=== PATIENT | male | born 1960 | race Caucasian/White ===

== ENCOUNTER 2020-05-13 14:23 | Inpatient (IN) | payer BC, OTHER ==
[~2020-05-13] VITALS: Ht 182.9 cm; Wt 145.2 kg
[~2020-05-13 14:23] MED LIST: ECOTRIN81 MG PO; K-DUR TAB 10 M10 MEQ PO; K-DUR TAB 20 M20 MEQ PO; LAMISIL TAB 25250 MG PO; MONTELUKAST SOD10 MG PO; NORVASC 5 MG TAB5 MG PO; OMNICEF 300 MG300 MG PO; PROTONIX40 MG PO; TOPROL XL100 MG PO; ULTRAM50 MG PO
[2020-05-13 15:49] LABS: HEMOGLOBIN 15.4 gm/dl (14.0-17.5); RED BLOOD COUNT 4.9 M/UL (4.20-5.50); WHITE BLOOD COUNT 11.5 K/UL (4.5-11.0)
[2020-05-13] MEDS ORDERED: FOLIC ACID 1 MG1 MG PO (16:09)
[2020-05-13] MEDS ORDERED: ACETAMINOPHEN-1 EAC1 PO (16:10)
[2020-05-13] MEDS ORDERED: VOLTAREN100 GM TOP (16:11)
[2020-05-13] MEDS ORDERED: METHOTREXATE T2.5 MG PO (16:12)
[2020-05-13] MEDS ORDERED: DAILY VALUE1 EACH PO (16:12)
[2020-05-13] MEDS ORDERED: HYGROTON TAB 2525 MG PO (20:37)
[2020-05-14 05:07] LABS: HEMOGLOBIN 14.7 gm/dl (14.0-17.5); RED BLOOD COUNT 4.72 M/UL (4.20-5.50); WHITE BLOOD COUNT 11.4 K/UL (4.5-11.0)
[2020-05-15 03:29] LABS: HEMOGLOBIN 14.5 gm/dl (14.0-17.5); RED BLOOD COUNT 4.62 M/UL (4.20-5.50); WHITE BLOOD COUNT 10.3 K/UL (4.5-11.0)
[2020-05-15 03:57] LABS: BUN/CREATININE RATIO 37 (0-10)
[2020-05-16 04:43] LABS: HEMOGLOBIN 14.8 gm/dl (14.0-17.5); RED BLOOD COUNT 4.82 M/UL (4.20-5.50); WHITE BLOOD COUNT 12.3 K/UL (4.5-11.0)
[2020-05-16 05:55] LABS: BUN/CREATININE RATIO 39 (0-10)
[2020-05-16 06:10] LABS: ORGANISM ID Not indicated. (.); SPECIMEN SOURCE Urine (.); STREPTOCOCCUS PNEUMONIAE AG Negative (Negative)
[2020-05-17 05:55] LABS: HEMOGLOBIN 15.3 gm/dl (14.0-17.5); RED BLOOD COUNT 4.96 M/UL (4.20-5.50)
[2020-05-17 06:21] LABS: BUN/CREATININE RATIO 45 (0-10)
[2020-05-17 20:18] LABS: BUN/CREATININE RATIO 46 (0-10)
[2020-05-18 05:33] LABS: HEMOGLOBIN 14.8 gm/dl (14.0-17.5); RED BLOOD COUNT 4.98 M/UL (4.20-5.50); WHITE BLOOD COUNT 11.9 K/UL (4.5-11.0)
[2020-05-19 05:32] LABS: HEMOGLOBIN 15.1 gm/dl (14.0-17.5); RED BLOOD COUNT 4.86 M/UL (4.20-5.50); WHITE BLOOD COUNT 11.3 K/UL (4.5-11.0)
[2020-05-19 05:54] LABS: BUN/CREATININE RATIO 55 (0-10)
[2020-05-20 05:58] LABS: HEMOGLOBIN 14.5 gm/dl (14.0-17.5); RED BLOOD COUNT 4.76 M/UL (4.20-5.50); WHITE BLOOD COUNT 14.2 K/UL (4.5-11.0)
[2020-05-20 06:51] LABS: BUN/CREATININE RATIO 44 (0-10)
[2020-05-21 04:41] LABS: HEMOGLOBIN 14.5 gm/dl (14.0-17.5); RED BLOOD COUNT 4.69 M/UL (4.20-5.50)
[2020-05-21 05:30] LABS: BUN/CREATININE RATIO 42 (0-10)
[2020-05-22 03:17] LABS: RED BLOOD COUNT 4.54 M/UL (4.20-5.50); WHITE BLOOD COUNT 15.7 K/UL (4.5-11.0)
[2020-05-22 04:11] LABS: BUN/CREATININE RATIO 57 (0-10)
[2020-05-22 17:53] LABS: HEMOGLOBIN 11.2 gm/dl (14.0-17.5)
[2020-05-22 22:34] LABS: HEMOGLOBIN 9.9 gm/dl (14.0-17.5)
[2020-05-22 22:47] LABS: WHITE BLOOD COUNT 30.3 K/UL (4.5-11.0)
[2020-05-22 22:48] LABS: RED BLOOD COUNT 3.12 M/UL (4.20-5.50)
[2020-05-22 22:48] LABS: BUN/CREATININE RATIO 100 (0-10)
--- NOTE | 2020-05-22 23:49 | NUR ---
PT HAD ORDERS TO GO TO PCU UPON MY ARRIVAL TO THE FLOOR. HOWEVER, THERE WERE NO PCU BEDS AVAILABLE AT THE TIME. APPROX. 1900: TRIED TO CALL HOUSE TO GET AN UPDATE ON PT'S PCU BED. NO ANSWER. APPROX. 1929: TRIED TO CALL HOUSE TO GET AN UPDATE ON PT'S PCU BED. NO ANSWER. APPROX. 1999: MAKENZIE العراقي RN CALLED ME AND TOLD ME THAT THAT PCU WAS IN THE PROCESS OF TRANSFERRING A PATIENT TO ICU, AND THEN CLEANING THE ROOM AND THEN I WOULD BE ABLE TO CALL REPORT. APPROX. 2139: CALLED HOUSE BACK TO GET AN UPDATE ON PCU BED. [employer] TOLD ME THAT SHE WASN'T SURE. SHE WOULD CALL ICU AND LET ME KNOW. APPROX. 2148: CALLED B/C PT HAD A BP OF 86/71. SEE PROVIDER NOTIFCATIONS FOR DETAILS AND ORDERS. APPROX. 2149: CALLED HOUSE BACK TO NOTIFY HER OF PT'S BP AND TO SEE IF BED WAS AVAILABLE YET. APPROX. 2158: CALLED REPORT TO PCU. PT WAS BEING TRANSFERRED TO ROOM 6113. APPROX. 2219: I ALONG WITH PCT CALIXTO TRANSFERRED THE PT TO PCU. UPON ARRIVING TO PCU WITH PT, RN TOLD ME THAT PT WAS GOING TO ROOM 6116, INSTEAD OF 6113. PT WAS STABLE. NO SIGNS OF DISTRESS NOTED. PT'S 1L BOLUS AND PROTONIX DRIP @ 12 ML/HR WERE STILL INFUSING UPON TRANSFER.
[2020-05-23 03:47] LABS: BUN/CREATININE RATIO 97 (0-10)
[2020-05-23 05:47] LABS: HEMOGLOBIN 8.9 gm/dl (14.0-17.5)
[2020-05-23 07:31] LABS: RED BLOOD COUNT 2.9 M/UL (4.20-5.50)
[2020-05-23 08:49] LABS: WHITE BLOOD COUNT 33.3 K/UL (4.5-11.0)
[2020-05-23 14:56] LABS: HEMOGLOBIN 10.5 gm/dl (14.0-17.5)
[2020-05-23 23:21] LABS: HEMOGLOBIN 10.5 gm/dl (14.0-17.5)
[2020-05-24 04:59] LABS: HEMOGLOBIN 10.4 gm/dl (14.0-17.5)
[2020-05-24 10:58] LABS: HEMOGLOBIN 9.1 gm/dl (14.0-17.5)
[2020-05-25 04:51] LABS: HEMOGLOBIN 8.5 gm/dl (14.0-17.5); RED BLOOD COUNT 2.66 M/UL (4.20-5.50)
[2020-05-25 04:57] LABS: WHITE BLOOD COUNT 60.4 K/UL (4.5-11.0)
[2020-05-26 05:27] LABS: RED BLOOD COUNT 2.18 M/UL (4.20-5.50); WHITE BLOOD COUNT 26.8 K/UL (4.5-11.0)
[2020-05-26 05:28] LABS: HEMOGLOBIN 6.8 gm/dl (14.0-17.5)
--- NOTE | 2020-05-26 14:10 | NUR ---
DUAL LUMEN PICC LINE PLACED IN THE RIGHT BASILIC VEIN, CUT TO 44 CM.
[2020-05-26 17:18] LABS: HEMOGLOBIN 11.7 gm/dl (14.0-17.5)
[2020-05-27 07:02] LABS: RED BLOOD COUNT 3.19 M/UL (4.20-5.50); WHITE BLOOD COUNT 20.4 K/UL (4.5-11.0)
[2020-05-27 07:03] LABS: HEMOGLOBIN 9.6 gm/dl (14.0-17.5)
[2020-05-27 07:11] LABS: BUN/CREATININE RATIO 66 (0-10)
[2020-05-27 18:07] LABS: HEMOGLOBIN 9.3 gm/dl (14.0-17.5)
[2020-05-28 05:02] LABS: HEMOGLOBIN 9.4 gm/dl (14.0-17.5); RED BLOOD COUNT 3.21 M/UL (4.20-5.50); WHITE BLOOD COUNT 22.4 K/UL (4.5-11.0)
[2020-05-28 05:23] LABS: BUN/CREATININE RATIO 56 (0-10)
[2020-05-29 05:41] LABS: HEMOGLOBIN 8.9 gm/dl (14.0-17.5); WHITE BLOOD COUNT 20.5 K/UL (4.5-11.0)
[2020-05-29 06:01] LABS: BUN/CREATININE RATIO 37 (0-10)
--- NOTE | 2020-05-29 15:36 | NUR ---
TOLD ABOUT THE PATIENTS RIGHT ARM. WHEN I WALKED IN THE ARM WAS SWOLLEN AND OOZING. THE PT WAS NOT ABLE TO MOVE HIS RIGHT HAND AND COMPLAINED ABOUT PAIN.
[2020-05-30 03:43] LABS: HEMOGLOBIN 9.8 gm/dl (14.0-17.5); RED BLOOD COUNT 3.25 M/UL (4.20-5.50); WHITE BLOOD COUNT 19.2 K/UL (4.5-11.0)
[2020-05-30 04:00] LABS: BUN/CREATININE RATIO 35 (0-10)
[2020-05-31 03:23] LABS: HEMOGLOBIN 8.5 gm/dl (14.0-17.5); WHITE BLOOD COUNT 15.6 K/UL (4.5-11.0)
[2020-05-31 03:24] LABS: RED BLOOD COUNT 2.82 M/UL (4.20-5.50)
[2020-05-31 03:53] LABS: BUN/CREATININE RATIO 29 (0-10)
--- NOTE | 2020-05-31 12:52 | NUR ---
PT GOT UP AND SAT ON THE SIDE OF THE BED. BOTH ME AND PT SAT HIM UP. PT COMPLAINED ABOUT LEFT HAND, ALONG WITH THE LEFT LEG HURTING HIM TO MOVE. HE DID NOT TOLERATE IT WELL HIS RIGHT SIDE. HE HAD NO COMPLAINTS OUT OF THE RIGHT SIDE. WHICH WAS CONCERNING. THE DOCTOR IS AWARE AND WAS NOTIFIED THAT THE PT DID NOT COMPLAIN OF HIS RIGHT SIDE. PT SAT UP WELL ON THE BED AND USED HIS ARM TO SCOTCH HIM SELF UP.
[2020-06-01 03:46] LABS: HEMOGLOBIN 7.8 gm/dl (14.0-17.5); RED BLOOD COUNT 2.57 M/UL (4.20-5.50); WHITE BLOOD COUNT 12.6 K/UL (4.5-11.0)
[2020-06-01 04:25] LABS: BUN/CREATININE RATIO 26 (0-10)
[2020-06-01 13:31] LABS: HEMOGLOBIN 7.6 gm/dl (14.0-17.5); RED BLOOD COUNT 2.49 M/UL (4.20-5.50); WHITE BLOOD COUNT 11.1 K/UL (4.5-11.0)
[2020-06-01 13:59] LABS: BUN/CREATININE RATIO 25 (0-10)
[2020-06-02 05:33] LABS: HEMOGLOBIN 8.1 gm/dl (14.0-17.5); RED BLOOD COUNT 2.64 M/UL (4.20-5.50); WHITE BLOOD COUNT 11.9 K/UL (4.5-11.0)
[2020-06-02 05:54] LABS: BUN/CREATININE RATIO 23 (0-10)
[2020-06-03 10:43] LABS: HEMOGLOBIN 7.8 gm/dl (14.0-17.5); RED BLOOD COUNT 2.57 M/UL (4.20-5.50); WHITE BLOOD COUNT 11.3 K/UL (4.5-11.0)
[2020-06-03 11:25] LABS: BUN/CREATININE RATIO 18 (0-10)
[2020-06-03 16:28] LABS: BUN/CREATININE RATIO 18 (0-10)
[2020-06-05 06:17] LABS: HEMOGLOBIN 7.8 gm/dl (14.0-17.5); RED BLOOD COUNT 2.55 M/UL (4.20-5.50); WHITE BLOOD COUNT 10.3 K/UL (4.5-11.0)
[2020-06-05 06:31] LABS: BUN/CREATININE RATIO 18 (0-10)
[2020-06-06 05:19] LABS: HEMOGLOBIN 8.2 gm/dl (14.0-17.5); RED BLOOD COUNT 2.75 M/UL (4.20-5.50); WHITE BLOOD COUNT 9.6 K/UL (4.5-11.0)
[2020-06-06 05:50] LABS: BUN/CREATININE RATIO 17 (0-10)
[2020-06-07 04:13] LABS: HEMOGLOBIN 8.6 gm/dl (14.0-17.5); RED BLOOD COUNT 2.83 M/UL (4.20-5.50); WHITE BLOOD COUNT 10.5 K/UL (4.5-11.0)
[2020-06-07 04:50] LABS: BUN/CREATININE RATIO 17 (0-10)
[2020-06-10 04:42] LABS: HEMOGLOBIN 8.4 gm/dl (14.0-17.5); RED BLOOD COUNT 2.84 M/UL (4.20-5.50)
[2020-06-11 06:28] LABS: HEMOGLOBIN 8.5 gm/dl (14.0-17.5); RED BLOOD COUNT 2.85 M/UL (4.20-5.50); WHITE BLOOD COUNT 9.2 K/UL (4.5-11.0)
[2020-06-11 07:29] LABS: BUN/CREATININE RATIO 14 (0-10)
[2020-06-12 03:14] LABS: HEMOGLOBIN 8.5 gm/dl (14.0-17.5); RED BLOOD COUNT 2.86 M/UL (4.20-5.50); WHITE BLOOD COUNT 9.4 K/UL (4.5-11.0)
[2020-06-12 03:30] LABS: BUN/CREATININE RATIO 15 (0-10)
[2020-06-13 03:11] LABS: HEMOGLOBIN 8.5 gm/dl (14.0-17.5); RED BLOOD COUNT 2.87 M/UL (4.20-5.50); WHITE BLOOD COUNT 8.6 K/UL (4.5-11.0)
[2020-06-13 03:37] LABS: BUN/CREATININE RATIO 16 (0-10)
[2020-06-14 05:50] LABS: HEMOGLOBIN 9.3 gm/dl (14.0-17.5); RED BLOOD COUNT 3.19 M/UL (4.20-5.50); WHITE BLOOD COUNT 9.8 K/UL (4.5-11.0)
[2020-06-14 06:09] LABS: BUN/CREATININE RATIO 17 (0-10)
[2020-06-14] MEDS ORDERED: FUROSEMIDE40 MG PO (14:49)
[2020-06-14] MEDS ORDERED: FERROCITE324 MG PO (14:49)
[2020-06-14] MEDS ORDERED: POTASSIUM CHLO20 ME2 PO (14:49)
[2020-06-14] MEDS ORDERED: ELIQUIS 5 MG TAB5 MG PO (14:49)
[2020-06-14] MEDS ORDERED: DIGOXIN250 MCG PO (14:49)
[2020-06-14] MEDS ORDERED: LOPRESSOR 25 MG25 MG PO (14:49)
== END 2020-06-14 18:28 | DRG 208 ==
LOC: ER1 14:23 → CCU 15:44 → CDU 15:44 → PROG CARE 15:44 → 2 EAST 15:44 → MED SURG 4 15:44 → PROG CARE 16:55 → 2 EAST 21:01 → M/S 05-21 17:23 → PROG CARE 05-22 22:32 → CCU 05-23 14:02 → PROG CARE 05-29 00:22 → MED SURG 4 06-01 16:59
PROVIDERS: Emergency Medicine; Internal Medicine; Internal Medicine Gastroenterology; Internal Medicine Nephrology; Internal Medicine Pulmonary Disease; ADMIT Internal Medicine
PROC: 8E0ZXY6 Isolation (ICD-10-PCS; 2020-05-13)
PROC: XW13325 Transfusion of Convalescent Plasma (Nonautologous) into Peripheral Vein, Percutaneous Approach, New Technology Group 5 (ICD-10-PCS; 2020-05-13)
PROC: XW033E5 Introduction of Remdesivir Anti-infective into Peripheral Vein, Percutaneous Approach, New Technology Group 5 (ICD-10-PCS; 2020-05-13)
PROC: 30233N1 Transfusion of Nonautologous Red Blood Cells into Peripheral Vein, Percutaneous Approach (ICD-10-PCS; 2020-05-22)
PROC: 0BH17EZ Insertion of Endotracheal Airway into Trachea, Via Natural or Artificial Opening (ICD-10-PCS; 2020-05-23)
PROC: 5A1945Z Respiratory Ventilation, 24-96 Consecutive Hours (ICD-10-PCS; 2020-05-23)
PROC: 3E0G8GC Introduction of Other Therapeutic Substance into Upper GI, Via Natural or Artificial Opening Endoscopic (ICD-10-PCS; principal; 2020-05-23 13:00)
PROC: 0DJ08ZZ Inspection of Upper Intestinal Tract, Via Natural or Artificial Opening Endoscopic (ICD-10-PCS; 2020-05-24)
PROC: 0DH68UZ Insertion of Feeding Device into Stomach, Via Natural or Artificial Opening Endoscopic (ICD-10-PCS; 2020-05-24)
PROC: 3E0G76Z Introduction of Nutritional Substance into Upper GI, Via Natural or Artificial Opening (ICD-10-PCS; 2020-05-24)
PROC: 30233N1 Transfusion of Nonautologous Red Blood Cells into Peripheral Vein, Percutaneous Approach (ICD-10-PCS; 2020-05-26)
PROC: 02HV33Z Insertion of Infusion Device into Superior Vena Cava, Percutaneous Approach (ICD-10-PCS; 2020-05-26)
PROC: B548ZZA Ultrasonography of Superior Vena Cava, Guidance (ICD-10-PCS; 2020-05-26)
PROC: 02HV33Z Insertion of Infusion Device into Superior Vena Cava, Percutaneous Approach (ICD-10-PCS; 2020-05-30)
PROC: B548ZZA Ultrasonography of Superior Vena Cava, Guidance (ICD-10-PCS; 2020-05-30)
DX: U07.1 COVID-19 (principal); J12.82 Pneumonia due to coronavirus disease 2019; J80 Acute respiratory distress syndrome; J15.9 Unspecified bacterial pneumonia; I21.A1 Myocardial infarction type 2; R57.8 Other shock; K25.4 Chronic or unspecified gastric ulcer with hemorrhage; R65.20 Severe sepsis without septic shock; A41.89 Other specified sepsis; N17.9 Acute kidney failure, unspecified; D62 Acute posthemorrhagic anemia; E87.4 Mixed disorder of acid-base balance; E87.0 Hyperosmolality and hypernatremia; L97.909 Non-pressure chronic ulcer of unspecified part of unspecified lower leg with unspecified severity; I82.613 Acute embolism and thrombosis of superficial veins of upper extremity, bilateral; Z68.41 Body mass index [BMI] 40.0-44.9, adult; I82.621 Acute embolism and thrombosis of deep veins of right upper extremity; D72.829 Elevated white blood cell count, unspecified; I80.8 Phlebitis and thrombophlebitis of other sites; I48.91 Unspecified atrial fibrillation; D69.6 Thrombocytopenia, unspecified; E66.01 Morbid (severe) obesity due to excess calories; E78.5 Hyperlipidemia, unspecified; N18.30 Chronic kidney disease, stage 3 unspecified; E11.22 Type 2 diabetes mellitus with diabetic chronic kidney disease; I12.9 Hypertensive chronic kidney disease with stage 1 through stage 4 chronic kidney disease, or unspecified chronic kidney disease; T38.0X5A Adverse effect of glucocorticoids and synthetic analogues, initial encounter; I83.009 Varicose veins of unspecified lower extremity with ulcer of unspecified site; E11.65 Type 2 diabetes mellitus with hyperglycemia; M06.9 Rheumatoid arthritis, unspecified; G62.9 Polyneuropathy, unspecified; M19.90 Unspecified osteoarthritis, unspecified site; Z79.899 Other long term (current) drug therapy; Z82.49 Family history of ischemic heart disease and other diseases of the circulatory system; Z88.0 Allergy status to penicillin; Z83.3 Family history of diabetes mellitus
CPT/HCPCS: ECHO; 36415; 36430; 36600; 70450; 70551; 71045; 71250; 72125; 73030; 73200; 76705; 80048; 80053; 80202; 81001; 82009; 82140; 82272; 82550; 82553; 82607; 82728; 82803; 82962; 83036; 83605; 83615; 83735; 83874; 83880; 84100; 84132; 84439; 84443; 84484; 85014; 85018; 85025; 85027; 85379; 85384; 85610; 85730; 86140; 86738; 86850; 86900; 86901; 86920; 86927; 87040; 87070; 87086; 87205; 87278; 87899; 92526; 92610; 93005; 93306; 93970; 94002; 94003; 94640; 94664; 94760; 96365; 96375; 97110; 97110-GP-CQ; 97163; 97164; 97167; 97530; 97530-GP-CQ; 97535; 99285; C1751; C9113; J0696; J1100; J1160; J1200; J1205; J1644; J1650; J1940; J1956; J2185; J2250; J2270; J2704; J2710; J2765; J3370; J7030; J7040; J7050; J7070; P9016; Q9967; U0002

== ENCOUNTER → 2020-10-04 | Outpatient (CLI) | payer BC, OTHER ==
[~2020-10-04] MED LIST changes: +ACETAMINOPHEN-1 EAC1 PO; +DAILY VALUE1 EACH PO; +DIGOXIN250 MCG PO; +ELIQUIS 5 MG TAB5 MG PO; +FERROCITE324 MG PO; +FOLIC ACID 1 MG1 MG PO; +FUROSEMIDE40 MG PO; +HYGROTON TAB 2525 MG PO; +LOPRESSOR 25 MG25 MG PO; +METHOTREXATE T2.5 MG PO; +POTASSIUM CHLO20 ME2 PO; +VOLTAREN100 GM TOP
== END ==
LOC: MRI 13:00
DX: Z00.00 Encounter for general adult medical examination without abnormal findings (principal); M54.12 Radiculopathy, cervical region; M48.02 Spinal stenosis, cervical region; R94.131 Abnormal electromyogram [EMG]; G54.0 Brachial plexus disorders; M50.323 Other cervical disc degeneration at C6-C7 level; U07.1 COVID-19; Q87.19 Other congenital malformation syndromes predominantly associated with short stature; Z86.16 Personal history of COVID-19
CPT/HCPCS: 36415; 72141; 82565; 84520; A9577

== ENCOUNTER → 2020-12-19 | Outpatient (CLI) | payer BC | LOC: HEART 5 09:06 | DX: I25.2 Old myocardial infarction (principal) | CPT/HCPCS: 78452; A9502; J2785 ==

== ENCOUNTER → 2020-12-20 | Outpatient (CLI) | payer BC | LOC: KOH-I 14:54 | DX: R09.89 Other specified symptoms and signs involving the circulatory and respiratory systems (principal); I99.9 Unspecified disorder of circulatory system; M17.9 Osteoarthritis of knee, unspecified; I82.432 Acute embolism and thrombosis of left popliteal vein | CPT/HCPCS: 93925 ==

== ENCOUNTER → 2021-04-07 | Outpatient (CLI) | payer BC ==
[~2021-04-07] MED LIST changes: +ACETAMINOPHEN-COD; +DIGOXIN125 MCG PO; +FERROUS FUMARA324 MG PO; +LISINOPRIL20 MG PO; +METOPROLOL SUC100 MG PO; +OMEPRAZOLE40 MG PO
[2021-04-07 13:03] LABS: HEMOGLOBIN 15.8 gm/dl (14.0-17.5); RED BLOOD COUNT 5.12 M/UL (4.20-5.50); WHITE BLOOD COUNT 10.4 K/UL (4.5-11.0)
[2021-04-07 13:24] LABS: BUN/CREATININE RATIO 18 (0-10)
== END ==
LOC: OPSV2 12:00 → EDSTATUS 12:00 → OPSV2 12:06
PROVIDERS: Orthopaedic Surgery
DX: Z01.818 Encounter for other preprocedural examination (principal); M17.12 Unilateral primary osteoarthritis, left knee
CPT/HCPCS: 36415; 80048; 83036; 85027; 93005

== ENCOUNTER → 2021-04-10 | Outpatient (CLI) | payer BC ==
[2021-04-10 10:55] LABS: BUN/CREATININE RATIO 17 (0-10)
== END ==
LOC: LAB 08:53
PROVIDERS: Orthopaedic Surgery
DX: Z01.812 Encounter for preprocedural laboratory examination (principal)
CPT/HCPCS: 36415; 80048; 86850; 86900; 86901

== ENCOUNTER → 2021-09-06 | Outpatient (CLI) | payer BC ==
[~2021-09-06] MED LIST changes: +AMMONIUM LACTATE; +ASPIRIN EC81 MG PO; +ELIQUIS5 MG PO; +K-TAB ER20 MEQ PO; +LASIX40 MG PO; +NORVASC5 MG PO
[2021-09-06 14:48] LABS: HEMOGLOBIN 16.9 gm/dl (14.0-17.5); RED BLOOD COUNT 5.35 M/UL (4.20-5.50)
[2021-09-06 15:27] LABS: BUN/CREATININE RATIO 19 (0-10)
== END ==
LOC: EDSTATUS 12:30 → OPSV2 12:30
PROVIDERS: Orthopaedic Surgery
DX: Z01.818 Encounter for other preprocedural examination (principal); M17.12 Unilateral primary osteoarthritis, left knee
CPT/HCPCS: 80048; 85025; 85610; 85730; 93005

== ENCOUNTER → 2021-09-18 | Outpatient (CLI) | payer BC ==
[~2021-09-18] MED LIST changes: +AMMONIUM LACTA140 GM TOP; -AMMONIUM LACTATE; +BETAMETHASONE D50 G2 TOP; +CYCLOBENZAPRINE10 MG PO; +ELIQUIS2.5 MG PO; +ENDOCET 10-3251 EACH PO; -LISINOPRIL20 MG PO; +LISINOPRIL40 MG PO; +ZOFRAN 4 MG TAB4 MG PO
== END ==
LOC: LAB 11:44
DX: Z01.812 Encounter for preprocedural laboratory examination (principal)
CPT/HCPCS: 36415; 86850; 86900; 86901; J7120

== ENCOUNTER 2021-09-19 07:24 | Inpatient (IN) | payer BC ==
[~2021-09-19] VITALS: Ht 182.9 cm; Wt 125.2 kg
[~2021-09-19 07:24] MED LIST changes: -CYCLOBENZAPRINE10 MG PO; -ELIQUIS2.5 MG PO; -ENDOCET 10-3251 EACH PO; -ZOFRAN 4 MG TAB4 MG PO
[2021-09-19] MEDS ORDERED: ELIQUIS2.5 MG PO (10:46)
[2021-09-19] MEDS ORDERED: ENDOCET 10-3251 EACH PO (10:46)
[2021-09-19] MEDS ORDERED: CYCLOBENZAPRINE10 MG PO (10:46)
[2021-09-19] MEDS ORDERED: ZOFRAN 4 MG TAB4 MG PO (10:46)
[2021-09-20 04:03] LABS: HEMOGLOBIN 14.6 gm/dl (14.0-17.5); RED BLOOD COUNT 4.63 M/UL (4.20-5.50); WHITE BLOOD COUNT 17.4 K/UL (4.5-11.0)
[2021-09-20 04:26] LABS: BUN/CREATININE RATIO 26 (0-10)
[2021-09-20 14:30] LABS: HEMOGLOBIN 13.3 gm/dl (14.0-17.5); RED BLOOD COUNT 4.29 M/UL (4.20-5.50)
[2021-09-20 14:38] LABS: WHITE BLOOD COUNT 22.9 K/UL (4.5-11.0)
[2021-09-21 00:37] LABS: HEMOGLOBIN 11.6 gm/dl (14.0-17.5); WHITE BLOOD COUNT 18.1 K/UL (4.5-11.0)
[2021-09-21 00:52] LABS: RED BLOOD COUNT 3.72 M/UL (4.20-5.50)
[2021-09-21 00:55] LABS: BUN/CREATININE RATIO 23 (0-10)
[2021-09-22 02:14] LABS: HEMOGLOBIN 11.6 gm/dl (14.0-17.5); RED BLOOD COUNT 3.73 M/UL (4.20-5.50)
[2021-09-22 02:40] LABS: BUN/CREATININE RATIO 19 (0-10)
[2021-09-22] MEDS ORDERED: ELIQUIS5 MG PO (11:29)
== END 2021-09-22 19:07 | DRG 470 ==
LOC: M/S 07:24 → OR 07:24 → M/S 07:25 → EDSTATUS 11:45 → M/S 16:18 → OR 16:18 → M/S 09-22 19:07
PROVIDERS: Internal Medicine; ADMIT Orthopaedic Surgery
PROC: 0QPH04Z Removal of Internal Fixation Device from Left Tibia, Open Approach (ICD-10-PCS; 2021-09-19)
PROC: 0SRD0JA Replacement of Left Knee Joint with Synthetic Substitute, Uncemented, Open Approach (ICD-10-PCS; principal; 2021-09-19 10:45)
DX: M17.12 Unilateral primary osteoarthritis, left knee (principal); I48.91 Unspecified atrial fibrillation; E78.5 Hyperlipidemia, unspecified; N40.0 Benign prostatic hyperplasia without lower urinary tract symptoms; K21.9 Gastro-esophageal reflux disease without esophagitis; N18.30 Chronic kidney disease, stage 3 unspecified; I12.9 Hypertensive chronic kidney disease with stage 1 through stage 4 chronic kidney disease, or unspecified chronic kidney disease; Z79.01 Long term (current) use of anticoagulants; Z88.0 Allergy status to penicillin; R00.1 Bradycardia, unspecified; T50.995A Adverse effect of other drugs, medicaments and biological substances, initial encounter; D72.829 Elevated white blood cell count, unspecified
CPT/HCPCS: 36415; 73560; 80048; 80162; 85027; 97110-GP-CQ; 97116-GP-CQ; 97162; 97166; 97530; 97530-GP-CQ; 97535; C1713; C1776; J0690; J1100; J1170; J1644; J1885; J2250; J2370; J2405; J2704; J2795; J3010; J3370; J7030; J7120

== ENCOUNTER 2021-09-28 12:25 | Inpatient (IN) | payer BC ==
[~2021-09-28] VITALS: Ht 182.9 cm; Wt 118.4 kg
[~2021-09-28 12:25] MED LIST changes: +CYCLOBENZAPRINE10 MG PO; +ELIQUIS2.5 MG PO; +ENDOCET 10-3251 EACH PO; +ZOFRAN 4 MG TAB4 MG PO
[2021-09-28 13:50] LABS: RED BLOOD COUNT 3.54 M/UL (4.20-5.50)
[2021-09-28 14:10] LABS: BUN/CREATININE RATIO 29 (0-10)
[2021-09-28] MEDS ORDERED: ENDOCET 10-3251 EACH PO (18:52)
[2021-09-29 06:25] LABS: HEMOGLOBIN 11.6 gm/dl (14.0-17.5); RED BLOOD COUNT 3.76 M/UL (4.20-5.50)
[2021-09-29 06:56] LABS: BUN/CREATININE RATIO 27 (0-10)
[2021-09-29] MEDS ORDERED: LANOXIN EL0.05 MG/ML PO (09:41)
[2021-09-29] MEDS ORDERED: CEPHALEXIN500 MG PO (09:45)
--- NOTE | 2021-09-29 18:53 | NUR ---
RN ATTEMPTED TO CALL DR. LE ABOUT NURSING COMMUNICATION FOR UNNA BOOT CLARIFICATION. THE ORDER DID NOT STATE IF BOTH LEGS NEEDED THEM AND THE ORDER WAS NOT ADDED TO THE EMAR, WHICH IS ALSO NECESSARY FOR ADMINISTRATION.
[2021-09-30 05:13] LABS: HEMOGLOBIN 10.6 gm/dl (14.0-17.5); RED BLOOD COUNT 3.46 M/UL (4.20-5.50); WHITE BLOOD COUNT 14.1 K/UL (4.5-11.0)
[2021-09-30 05:46] LABS: BUN/CREATININE RATIO 24 (0-10)
[2021-10-01 06:52] LABS: HEMOGLOBIN 11.1 gm/dl (14.0-17.5); RED BLOOD COUNT 3.62 M/UL (4.20-5.50); WHITE BLOOD COUNT 15.6 K/UL (4.5-11.0)
[2021-10-01 07:15] LABS: BUN/CREATININE RATIO 20 (0-10)
--- NOTE | 2021-10-01 19:37 | NUR ---
PATIENTS BROTHER WAS VISITING AND TAKING PICTURES OF THE HANGING IV ANTIBIOTS WITH HIS CELL PHONE AND ALSO VAPING IN PATIENTS ROOM. I INFORMED HIS THIS IS A NO SMOKING FACILITY.
[2021-10-02 05:54] LABS: HEMOGLOBIN 11.5 gm/dl (14.0-17.5); RED BLOOD COUNT 3.8 M/UL (4.20-5.50); WHITE BLOOD COUNT 13.3 K/UL (4.5-11.0)
[2021-10-03 06:13] LABS: HEMOGLOBIN 11.2 gm/dl (14.0-17.5); RED BLOOD COUNT 3.6 M/UL (4.20-5.50); WHITE BLOOD COUNT 12.6 K/UL (4.5-11.0)
[2021-10-03 06:34] LABS: BUN/CREATININE RATIO 17 (0-10)
[2021-10-04 07:27] LABS: HEMOGLOBIN 12.1 gm/dl (14.0-17.5); RED BLOOD COUNT 3.96 M/UL (4.20-5.50); WHITE BLOOD COUNT 10.8 K/UL (4.5-11.0)
[2021-10-04 07:44] LABS: BUN/CREATININE RATIO 21 (0-10)
[2021-10-05 05:07] LABS: HEMOGLOBIN 11.6 gm/dl (14.0-17.5); RED BLOOD COUNT 3.83 M/UL (4.20-5.50); WHITE BLOOD COUNT 12.2 K/UL (4.5-11.0)
[2021-10-05 05:23] LABS: BUN/CREATININE RATIO 18 (0-10)
[2021-10-05] MEDS ORDERED: METHOTREXATE T2.5 MG PO (13:09)
[2021-10-05] MEDS ORDERED: TYLENOL 8 HOUR650 MG PO (13:09)
== END 2021-10-05 16:51 | disposition home or self-care (01) | DRG 603 ==
LOC: ER1 12:25 → CDU 16:32 → M/S 16:32
PROVIDERS: Emergency Medicine; Internal Medicine; Physician Assistant Medical; ADMIT Internal Medicine
DX: L03.116 Cellulitis of left lower limb (principal); I82.532 Chronic embolism and thrombosis of left popliteal vein; M25.462 Effusion, left knee; I12.9 Hypertensive chronic kidney disease with stage 1 through stage 4 chronic kidney disease, or unspecified chronic kidney disease; L97.529 Non-pressure chronic ulcer of other part of left foot with unspecified severity; M19.91 Primary osteoarthritis, unspecified site; N18.30 Chronic kidney disease, stage 3 unspecified; Z20.822 Contact with and (suspected) exposure to COVID-19; R13.10 Dysphagia, unspecified; E66.01 Morbid (severe) obesity due to excess calories; D63.1 Anemia in chronic kidney disease; L40.50 Arthropathic psoriasis, unspecified; I48.91 Unspecified atrial fibrillation; I87.2 Venous insufficiency (chronic) (peripheral); Z96.652 Presence of left artificial knee joint; Z86.16 Personal history of COVID-19; Z79.899 Other long term (current) drug therapy; Z82.49 Family history of ischemic heart disease and other diseases of the circulatory system; Z83.3 Family history of diabetes mellitus; Z79.01 Long term (current) use of anticoagulants; Z98.890 Other specified postprocedural states; Z79.82 Long term (current) use of aspirin; Z68.35 Body mass index [BMI] 35.0-35.9, adult
CPT/HCPCS: 36415; 70450; 70551; 73560; 80048; 80053; 80202; 81001; 82550; 82553; 83605; 83735; 84100; 84484; 85025; 85027; 85610; 85652; 86140; 87040; 87086; 93005; 93971; 96374; 96375; 97110; 97110-GP-CQ; 97116-GP-CQ; 97162; 97166; 97530; 97530-GP-CQ; 99285; C9113; J2185; J3370; J7030; J7070; U0002

== ENCOUNTER → 2021-12-28 | Outpatient (CLI) | payer BC ==
[~2021-12-28] MED LIST changes: +CEPHALEXIN500 MG PO; +DIGOX125 MCG PO; +LANOXIN EL0.05 MG/ML PO; +METHIMAZOLE5 MG PO; +METOPROLOL SUCC50 MG PO; +TYLENOL 8 HOUR650 MG PO; +TYLENOL EXTRA500 MG PO
[2021-12-28 11:10] LABS: HEMOGLOBIN 14.2 gm/dl (14.0-17.5); RED BLOOD COUNT 4.75 M/UL (4.20-5.50); WHITE BLOOD COUNT 10.4 K/UL (4.5-11.0)
[2021-12-28 11:28] LABS: BUN/CREATININE RATIO 16 (0-10)
== END ==
LOC: OPSV2 10:00 → EDSTATUS 10:00 → OPSV2 10:05
PROVIDERS: Orthopaedic Surgery
DX: Z01.818 Encounter for other preprocedural examination (principal); M17.12 Unilateral primary osteoarthritis, left knee; Z88.0 Allergy status to penicillin; R94.31 Abnormal electrocardiogram [ECG] [EKG]; I48.91 Unspecified atrial fibrillation
CPT/HCPCS: 80048; 85027; 93005

== ENCOUNTER → 2022-01-10 | Outpatient (CLI) | payer BC ==
[~2022-01-10] MED LIST changes: +HYDROCODON-ACE1 EAC6 PO; -K-TAB ER20 MEQ PO
[2022-01-10 15:20] LABS: BUN/CREATININE RATIO 13 (0-10)
== END ==
LOC: LAB 13:31
PROVIDERS: Orthopaedic Surgery
DX: Z01.812 Encounter for preprocedural laboratory examination (principal)
CPT/HCPCS: 36415; 80048; 86850; 86900; 86901

== ENCOUNTER 2022-01-11 07:21 | Inpatient (IN) | payer BC ==
[~2022-01-11] VITALS: Ht 182.9 cm; Wt 127.0 kg
[~2022-01-11 07:21] MED LIST changes: -HYDROCODON-ACE1 EAC6 PO
[2022-01-11] MEDS ORDERED: HYDROCODON-ACE1 EAC6 PO (10:54)
[2022-01-11] MEDS ORDERED: CYCLOBENZAPRINE10 MG PO (10:54)
[2022-01-11] MEDS ORDERED: ELIQUIS2.5 MG PO (10:54)
[2022-01-11] MEDS ORDERED: ZOFRAN 4 MG TAB4 MG PO (10:54)
[2022-01-11] MEDS ORDERED: ELIQUIS5 MG PO (18:23)
[2022-01-11] MEDS ORDERED: ACETAMINOPHEN-1 EAC1 PO (18:25)
[2022-01-12 06:41] LABS: HEMOGLOBIN 11.3 gm/dl (14.0-17.5); RED BLOOD COUNT 3.85 M/UL (4.20-5.50); WHITE BLOOD COUNT 13.7 K/UL (4.5-11.0)
[2022-01-12 07:02] LABS: BUN/CREATININE RATIO 22 (0-10)
[2022-01-13 04:48] LABS: HEMOGLOBIN 10.8 gm/dl (14.0-17.5); RED BLOOD COUNT 3.69 M/UL (4.20-5.50); WHITE BLOOD COUNT 11.8 K/UL (4.5-11.0)
[2022-01-13 05:24] LABS: BUN/CREATININE RATIO 24 (0-10)
--- NOTE | 2022-01-13 11:39 | NUR ---
Tele removed fomr patient per order.
[2022-01-14 04:53] LABS: HEMOGLOBIN 10.9 gm/dl (14.0-17.5); RED BLOOD COUNT 3.7 M/UL (4.20-5.50); WHITE BLOOD COUNT 12.2 K/UL (4.5-11.0)
[2022-01-14 05:10] LABS: BUN/CREATININE RATIO 17 (0-10)
--- NOTE | 2022-01-15 15:16 | NUR ---
REPORT CALLED TO SANDRINE ON [facility]
[2022-01-16 04:23] LABS: HEMOGLOBIN 11.4 gm/dl (14.0-17.5); RED BLOOD COUNT 3.92 M/UL (4.20-5.50); WHITE BLOOD COUNT 14.6 K/UL (4.5-11.0)
[2022-01-16 04:48] LABS: BUN/CREATININE RATIO 20 (0-10)
[2022-01-17 03:21] LABS: HEMOGLOBIN 11.9 gm/dl (14.0-17.5); RED BLOOD COUNT 4.05 M/UL (4.20-5.50); WHITE BLOOD COUNT 13.4 K/UL (4.5-11.0)
== END 2022-01-18 12:28 | DRG 470 ==
LOC: OR 07:21 → CCU 07:22 → OR 07:30 → CCU 14:46 → OR 01-15 13:04 → M/S 01-15 16:46 → OR 01-16 10:15 → M/S 01-18 12:28
PROVIDERS: Internal Medicine; ADMIT Orthopaedic Surgery
PROC: 0SRC0J9 Replacement of Right Knee Joint with Synthetic Substitute, Cemented, Open Approach (ICD-10-PCS; principal; 2022-01-11 12:00)
DX: M17.11 Unilateral primary osteoarthritis, right knee (principal); E03.9 Hypothyroidism, unspecified; M06.9 Rheumatoid arthritis, unspecified; E78.5 Hyperlipidemia, unspecified; N40.0 Benign prostatic hyperplasia without lower urinary tract symptoms; K21.9 Gastro-esophageal reflux disease without esophagitis; L40.50 Arthropathic psoriasis, unspecified; I48.0 Paroxysmal atrial fibrillation; I12.9 Hypertensive chronic kidney disease with stage 1 through stage 4 chronic kidney disease, or unspecified chronic kidney disease; N18.30 Chronic kidney disease, stage 3 unspecified; Z96.652 Presence of left artificial knee joint; Z86.711 Personal history of pulmonary embolism; Z86.16 Personal history of COVID-19; Z79.01 Long term (current) use of anticoagulants; Z79.899 Other long term (current) drug therapy; Z79.82 Long term (current) use of aspirin; Z86.718 Personal history of other venous thrombosis and embolism
CPT/HCPCS: 36415; 73560; 80048; 82962; 85027; 97110-GP-CQ; 97116-GP-CQ; 97162; 97166; 97530; 97530-GP-CQ; 97535; C1713; C1776; J0690; J1100; J1170; J1644; J1885; J2001; J2250; J2274; J2405; J2704; J2795; J3010; J3370